=== PATIENT | female | born 1975 | race Two or more races ===

== ENCOUNTER 2018-03-07 10:42 | Emergency (ER) | payer OTHER ==
[2018-03-07 11:06] VITALS: BP 138/81; PULSE 80; TEMP 98.5; BMI 37.8
--- NOTE | 2018-03-07 11:44 | PDOC ---
History of Present Illness - General Chief Complaint: Ear Problem Stated Complaint: Ear Problem Time Seen by Provider: 03/07/18 11:26 History Source: Patient Exam Limitations: No Limitations - History of Present Illness Initial Comments: 03/07/18 11:39 42-year-old female presents to the ED with left ear pain for the past week or along with drainage. Patient denies injury or previous ear infection. Patient denies throat pain fever or chills. Patient does state decreased hearing for the past 2 days. Timing/Duration: 1 week Severity: mild Associated Symptoms: reports: denies symptoms Past History - Travel Traveled outside of the country in the last 30 days: No - Past Medical History Allergies/Adverse Reactions: Allergies Allergy/AdvReac Type Severity Reaction Status Date / Time No Known Allergies Allergy Verified 03/07/18 11:03 Home Medications: Ambulatory Orders NK [No Known Home Medication] 03/07/18 COPD: No DVT: No - Surgical History Appendectomy: Yes Cholecystectomy: Yes - Immunization History Immunization Up to Date: Yes - Suicide/Smoking/Psychosocial Hx Smoking History: Never smoked Information on smoking cessation initiated: No Hx Alcohol Use: No Drug/Substance Use Hx: No Substance Use Type: None Patient Lives Alone: No Lives with/in: spouse/SO Review of Systems - Review of Systems Able to Perform ROS?: No Constitutional: No: Symptoms Reported HEENTM: Yes: Ear Pain, Ear Discharge, Hearing Loss (mildI'll) Respiratory: No: Symptoms reported Integumentary: No: Symptoms Reported Neurological: No: Symptoms reported *Physical Exam - Vital Signs Last Vital Signs Temp Pulse Resp BP Pulse Ox 98.5 F 80 16 138/81 99 03/07/18 11:04 03/07/18 11:04 03/07/18 11:04 03/07/18 11:04 03/07/18 11:04 - Physical Exam General Appearance: Yes: Nourished, Appropriately Dressed. No: Apparent Distress HEENT: positive: TMs Normal (right), Other (Noted erythematous edematous left ear canal along with cloudy drainage exuding from the ear. Unable to visualize TM) Neck: positive: Supple. negative: Lymphadenopathy (L) Respiratory/Chest: positive: Lungs Clear, Normal Breath Sounds. negative: Respiratory Distress, Accessory Muscle Use Cardiovascular: positive: Regular Rhythm, Regular Rate. negative: Murmur Integumentary: positive: Normal Color, Warm, Moist Neurologic: positive: Motor Strength 5/5 (ambulatory) Medical Decision Making - Medical Decision Making 03/07/18 11:43 Patient with left ear pain for the past week along with decreased hearing and drainage. Patient on exam with otitis externa and unable to diagnosed with otitis media secondary to occluded TM. *DC/Admit/Observation/Transfer Diagnosis at time of Disposition: Otitis externa - Discharge Dispostion Disposition: HOME Condition at time of disposition: Good - Referrals - Patient Instructions Printed Discharge Instructions: DI for Otitis Externa Additional Instructions: Please take medication as prescribed. Please do not place anything in your ears as this may irritate the area more. If symptoms do not improve over the next 3 days please return to the ED. otherwise follow up with her primary care doctor. - Post Discharge Activity
== END 2018-03-07 11:49 | disposition home or self-care (01) ==
LOC: JERFT 10:42
DX: H60.8X2 Other otitis externa, left ear (principal)
CPT/HCPCS: 99281-25